=== PATIENT | male | born 1960 | race Caucasian/White ===

== ENCOUNTER 2017-10-12 14:29 | Emergency (ER) | payer MEDICARE, MEDICAID ==
[~2017-10-12] VITALS: Ht 193 cm; Wt 103.0 kg
[~2017-10-12 14:29] MED LIST: HUMIRA
[2017-10-12] MEDS ORDERED: CEPH-572 PO (15:22)
[2017-10-12 16:09] VITALS: BP 145/89
== END 2017-10-12 16:10 | disposition home or self-care (01) ==
LOC: ER 14:30
DX: Z48.02 Encounter for removal of sutures (principal)
CPT/HCPCS: 99283

== ENCOUNTER 2022-07-09 11:52 | Emergency (ER) | payer MEDICARE, MEDICAID ==
[~2022-07-09] VITALS: Ht 185.4 cm; Wt 103.0 kg
[~2022-07-09 11:52] MED LIST changes: +ASPI-1071 PO; +ERGO400C PO; +FOLI0.4T6 PO; +LOP25T PO; +MECO10005 PO; +METF500T PO; +METH2.5T PO; +OMEP40CA21 PO; +SECU150P2 IM; +SIMV-42 PO
[2022-07-09 12:03] VITALS: BP 135/87
[2022-07-09] MEDS ORDERED: HYDROcodone/acetaminophen 5mg/325mg tablet PO ONE ×2 (15:10→17:45)
[2022-07-09] MEDS ORDERED: HYDR-3965 PO (17:34)
== END 2022-07-09 18:23 | disposition home or self-care (01) ==
LOC: ER 11:53
DX: S92.245A Nondisplaced fracture of medial cuneiform of left foot, initial encounter for closed fracture (principal); E11.40 Type 2 diabetes mellitus with diabetic neuropathy, unspecified; Z72.9 Problem related to lifestyle, unspecified; Z79.82 Long term (current) use of aspirin; Z79.899 Other long term (current) drug therapy; Z87.81 Personal history of (healed) traumatic fracture; G11.9 Hereditary ataxia, unspecified; W19.XXXA Unspecified fall, initial encounter; Y93.01 Activity, walking, marching and hiking; Y92.090 Kitchen in other non-institutional residence as the place of occurrence of the external cause; Y99.8 Other external cause status
CPT/HCPCS: 29515; 73610; 73620; 73630; 73700; 99284; A6446; A6449

== ENCOUNTER 2023-10-26 19:49 | Emergency (ER) | payer MEDICARE, MEDICAID | END 2023-10-26 20:35 | disposition left against medical advice (07) | LOC: ER 19:50 | DX: S81.819A Laceration without foreign body, unspecified lower leg, initial encounter (principal); Z53.21 Procedure and treatment not carried out due to patient leaving prior to being seen by health care provider; X58.XXXA Exposure to other specified factors, initial encounter; Y93.89 Activity, other specified; Y92.89 Other specified places as the place of occurrence of the external cause; Y99.8 Other external cause status ==

== ENCOUNTER 2024-09-10 08:40 | Outpatient (CLI) | payer MEDICARE, MEDICAID | END 2024-09-10 23:59 | disposition home or self-care (01) | LOC: RAD 08:40 | PROVIDERS: ATTEND Family Medicine | DX: E78.1 Pure hyperglyceridemia (principal) | CPT/HCPCS: 76700 ==